=== PATIENT | male | born 1955 | race Two or more races ===

== ENCOUNTER 2023-09-21 05:08 | Day surgery (SDC) | payer OTHER ==
[2023-09-14 08:42] LABS: MEAN CELL VOLUME 90.3 fL (80.0-100.00); MEAN CORPUSCULAR HEMOGLOBIN 30.2 pg (27.00-32.0); MEAN CORPUSCULAR HGB CONC 33.4 g/dl (32.0-36.0); PLATELET COUNT 233 K/uL (150-450); RED BLOOD COUNT 4.32 M/uL (4.00-6.00); RED CELL DISTRIBUTION WIDTH 14.3 % (11.5-14.5)
[2023-09-14 08:46] LABS: URINE APPEARANCE Clear; URINE BILIRRUBIN Negative (NEGATIVE); URINE COLOR Yellow; URINE GLUCOSE Negative (NEGATIVE); URINE LEUKOCYTE Negative; URINE NITRATE Negative; URINE PROTEIN Negative (NEGATIVE); URINE UROBILINOGEN 0.2 E.U./dl
[2023-09-14 08:50] LABS: URINE BACTERIA 6.2 uL (0.0-1933); URINE RBC 22.2 uL (0.0-20.8)
[2023-09-14 08:53] LABS: URINE BLOOD TRACE
[2023-09-14 09:25] LABS: ALBUMIN 3.8 gm/dL (3.4-5.0); BILIRUBIN TOTAL 0.58 mg/dL (0.3-1.2); CALCIUM 9.9 mg/dL (8.5-10.1); CREATININE SERUM 0.78 mg/dL (0.70-1.30); GFR 99.58; GLOBULINA 3.4 G/DL (2.4-3.5); POTASSIUM 4.72 mEq/L (3.5-5.1); TOTAL PROTEIN 7.2 gm/dL (6.4-8.2)
[2023-09-14 09:29] LABS: INR 1.02; PARTIAL THROMBOPLASTIN TIME 30.2 SECONDS (22.0-34.0); PROTHROMBIN TIME 10.7 SECONDS (9.0-11.5)
[~2023-09-21] VITALS: Ht 185.4 cm; Wt 106.6 kg
[~2023-09-21 05:08] MED LIST: ATORVASTATIN CA10 MG PO; LOSARTAN POTASS50 MG PO; SYNTHROID175 MCG PO; TAMS0.4C PO
[2023-09-21] MEDS ORDERED: SYNTHROID200 MCG (08:40)
[2023-09-21] MEDS ORDERED: DEXAMETHASONE SODIUM PHOSP/PF 10 MG/ML VIAL IV ONE (10:45)
== END 2023-09-21 11:55 | disposition home or self-care (01) ==
LOC: SURH 05:08 → CIR.AMB 05:08 → O/R 05:08 → SURH 07:00 → EDSTATUS 07:15 → CIR.AMB 11:55 → O/R 11:55
PROVIDERS: ATTEND Surgery
DX: D35.1 Benign neoplasm of parathyroid gland (principal); E21.0 Primary hyperparathyroidism

== ENCOUNTER 2024-02-04 05:27 | Day surgery (SDC) | payer OTHER ==
[2024-01-27 11:15] VITALS: BP 122/71
[~2024-02-04] VITALS: Ht 185.4 cm; Wt 104.3 kg
[~2024-02-04 05:27] MED LIST changes: +SYNTHROID200 MCG
[2024-02-04] MEDS ORDERED: DIBUCAINE 15 GM OINT..GM. TUBE RECTAL ONE (10:45)
[2024-02-04] MEDS ORDERED: HEMOSTATIC MATRIX 1 KIT KIT TOP ONE (10:45)
[2024-02-04] MEDS ORDERED: POVIDONE-IODINE 118 ML BOTT TOP ONE (10:45)
[2024-02-04] MEDS ORDERED: METRONIDAZOLE/SODIUM CHLORIDE 500 MG/100 ML PIGGYBACK IV ONE (10:45)
[2024-02-04] MEDS ORDERED: CEFTRIAXONE SODIUM 2,000 MG VIAL IV ONE (10:45)
[2024-02-04] MEDS ORDERED: OXYCODONE HCL5 MG PO (11:27)
[2024-02-04] MEDS ORDERED: TAMSULOSIN HCL 0.4 MG CAP PO ONE (11:30)
== END 2024-02-04 17:15 | disposition home or self-care (01) ==
LOC: CIR.AMB 05:27
PROVIDERS: ATTEND Surgery
DX: K64.2 Third degree hemorrhoids (principal); K64.4 Residual hemorrhoidal skin tags; K64.8 Other hemorrhoids; K62.5 Hemorrhage of anus and rectum